=== PATIENT | female | born 1935 | race Caucasian/White ===

== ENCOUNTER → 2016-07-13 | Outpatient (CLI) | payer MEDICARE, OTHER ==
[~2016-07-13] MED LIST: AMITIZA24 MCG PO; AQUAPHOR HEALIN50 GM TOP; ASPIRIN81 MG PO; ATACAND32 MG PO; CHLORTHALIDONE25 MG PO; FLONASE16 GM NASBOTH; MYRBETRIQ50 MG PO; NORCO 5-325 TA1 EACH PO; PEPCID COMPLET1 EACH PO; TYLENOL325 MG PO; eye vitamins PO
== END | disposition short-term general hospital (02) ==
LOC: CLCARD 08:07
DX: I25.10 Atherosclerotic heart disease of native coronary artery without angina pectoris (principal); R00.1 Bradycardia, unspecified; I10 Essential (primary) hypertension; I27.2 Other secondary pulmonary hypertension; E78.5 Hyperlipidemia, unspecified; R94.31 Abnormal electrocardiogram [ECG] [EKG]

== ENCOUNTER → 2016-08-10 | Outpatient (CLI) | payer MEDICARE, OTHER | END | disposition short-term general hospital (02) | LOC: CLCARD 10:54 | DX: I25.10 Atherosclerotic heart disease of native coronary artery without angina pectoris (principal); R00.1 Bradycardia, unspecified; I10 Essential (primary) hypertension; I27.2 Other secondary pulmonary hypertension; I34.0 Nonrheumatic mitral (valve) insufficiency; E78.5 Hyperlipidemia, unspecified; Z95.1 Presence of aortocoronary bypass graft ==